=== PATIENT | female | born 1960 | race Caucasian/White ===

== ENCOUNTER → 2019-04-13 | Outpatient (REF) ==
--- NOTE | 2019-04-14 03:20 | REP ---
Clinical: Hip pain. Technique: Frontal view of the pelvis with neutral and frog lateral views of the right and left hip. Findings: Mild/early moderate arthritic changes include sclerosis to the acetabulum with joint space narrowing and marginal osteophyte formation. No periarticular loose bodies or erosive changes are appreciated. No acute fracture dislocation. Impression: Symmetric mild/early moderate arthritic changes to the hips. Electronically Signed by Rico Barakat MD 04/14/2019 03:10 A
--- NOTE | 2019-04-14 03:22 | REP ---
Clinical: Pain and disability. Technique: AP, lateral, coned-down views of the lumbosacral spine. Findings: Moderate/early advanced multilevel degenerative disc osteophyte complexes are appreciated. Findings include endplate sclerosis, disc space narrowing, marginal spurring/osteophyte formation and hypertrophic facet changes. Alignment and lordosis maintained. No acute fracture / compression injury or subluxation. Impression: Moderate/early advanced multilevel degenerative spondylosis. Electronically Signed by Rico Barakat MD 04/14/2019 03:13 A
== END ==
LOC: M SMT 14:16
PROVIDERS: ATTEND Internal Medicine
DX: Z00.00 Encounter for general adult medical examination without abnormal findings (principal)

== ENCOUNTER → 2020-06-22 | Outpatient (CLI) | payer OTHER | LOC: M RAD 18:19 | PROVIDERS: ATTEND Physician Assistant | DX: M48.07 Spinal stenosis, lumbosacral region (principal) ==

== ENCOUNTER → 2020-07-26 | Outpatient (CLI) | payer OTHER ==
--- NOTE | 2020-07-26 17:34 | REP ---
INDICATION: SPINAL STENOSIS, LUMBOSACRAL REGION. COMPARISON: None. TECHNIQUE: Axial CT lumbar spine performed. Sagittal and coronal reconstruction images performed. FINDINGS: There is 4 mm of grade 1 anterolisthesis of L4 on L5. Vertebral bodies are otherwise normal in height and well aligned. There is no compression fracture. At L1-2, L2-3 and L3-4 there is no significant disc protrusion. There is no significant canal stenosis or neural foraminal narrowing. At L4-5 there is diffuse disc bulging. There is severe facet hypertrophy. Appears to be mild to moderate canal stenosis. There also appears to be moderate bilateral foraminal narrowing. At L5-S1 there is [id number] diffuse disc bulging. There is moderate to severe facet hypertrophy. Spinal canal is adequate. There is moderate right-sided foraminal narrowing with moderate to severe left-sided foraminal narrowing at this level. Incidental note is made of a left adrenal adenoma. IMPRESSION: No acute fracture. Disc bulging and facet degenerative changes L4-5 and L5-S1 as discussed above. A preliminary report was provided by [facility] at the time of the exam. <Electronically signed by Hermann Clark > 07/26/20 [id number]
== END ==
LOC: M RAD 13:42
PROVIDERS: ATTEND Physician Assistant
DX: M48.07 Spinal stenosis, lumbosacral region (principal); M25.78 Osteophyte, vertebrae

== ENCOUNTER → 2020-12-07 | Outpatient (REF) | payer OTHER ==
[2020-12-07 15:38] LABS: PLATELET COUNT, AUTOMATED 216 10^3/uL (150-450)
[2020-12-07 15:48] LABS: INR 0.99; PROTHROMBIN TIME 13.3 SECONDS (12.5-14.3)
[2020-12-07 15:49] LABS: PARTIAL THROMBOPLASTIN TIME 26.3 SECONDS (24.2-38.5)
== END ==
LOC: M PLALAB 15:06
PROVIDERS: ATTEND Physician Assistant
DX: M47.27 Other spondylosis with radiculopathy, lumbosacral region (principal)